=== PATIENT | female | born 1960 | race Caucasian/White ===

== ENCOUNTER 2024-06-06 22:41 | Emergency (ER) | payer OTHER ==
[~2024-06-06] VITALS: Ht 160 cm; Wt 71.5 kg
[2024-06-06 22:58] LABS: HEMOGLOBIN 13.5 g/dL (12.0-18.0)
[2024-06-06] MEDS ORDERED: LACTATED RINGER'S 1,000 ML IV ONE (23:00)
[2024-06-06] MEDS ORDERED: ondansetron HCL 4 MG/2 ML VIAL IV ONE (23:00)
[2024-06-06] MEDS ORDERED: DIPHTH,PERTUSS(ACELL),TET VAC 0.5 ML SYRINGE IM ONE (23:00)
[2024-06-06 23:01] LABS: BASOPHILS 0.7 % (0-2); EOSINOPHILS 11.7 % (0-6); HEMATOCRIT 39.8 % (35.0-50.0); LYMPHOCYTES 32.1 % (24-44); MCHC 33.8 g/dl (30-36); MCV 97.6 fl (81-99); MONOCYTES 10.6 % (0-12); NEUTROPHILS 44.9 % (39-80); PLATELET COUNT 190 K/uL (140-440); RBC 4.08 M/ul (4.3-5.7); RDW 13.1 (10.5-15.0)
[2024-06-06 23:14] LABS: ALBUMIN 3.7 g/dL (3.4-5.0); ALBUMIN/GLOBULIN RATIO 1.12 (1.1-2.4); ANION GAP 12.9 (7-21); BILIRUBIN, TOTAL 0.3 ng/dL (0.2-1.0); BUN/CREATININE RATIO 12.94 (6.0-28.6); CALCIUM 8.9 mg/dL (8.5-10.1); CREATININE, SERUM 0.85 mg/dL (0.55-1.02); POTASSIUM 3.9 mmol/L (3.5-5.1)
[2024-06-06 23:36] LABS: ABO O; ANTIBODY SCREEN NEGATIVE; RH POSITIVE
[2024-06-07] MEDS ORDERED: TRAMADOL HCL50 MG PO (00:30)
[2024-06-07 00:43] LABS: BILIRUBIN, URINE NEGATIVE (negative); BLOOD/HGB, URINE NEGATIVE (Negative); KETONE, URINE NEGATIVE (Negative); LEUK ESTERASE, URINE NEGATIVE (negative); NITRITE, URINE NEGATIVE (negative)
[2024-06-07 01:11] LABS: AMPHETAMINES, URINE NEGATIVE (NEGATIVE); BARBITURATES, URINE NEGATIVE (NEGATIVE); BENZODIAZEPINE, URINE NEGATIVE (NEGATIVE); BUPRENORPHINE, URINE NEGATIVE (NEGATIVE); CANNABINOID, URINE NEGATIVE (NEGATIVE); COCAINE, URINE NEGATIVE (NEGATIVE); ECSTASY, URINE NEGATIVE (NEGATIVE); FENTANYL, URINE NEGATIVE (NEGATIVE); METHADONE, URINE NEGATIVE (NEGATIVE); OPIATES, URINE NEGATIVE (NEGATIVE); OXYCODONE, URINE NEGATIVE (NEGATIVE); PHENCYCLIDINE, URINE NEGATIVE (NEGATIVE)
[2024-06-07 05:00] VITALS: BP 107/68
== END 2024-06-07 05:00 | disposition home or self-care (01) ==
LOC: ED 22:41
PROVIDERS: Family Medicine
DX: S16.1XXA Strain of muscle, fascia and tendon at neck level, initial encounter (principal); S01.01XA Laceration without foreign body of scalp, initial encounter; W18.30XA Fall on same level, unspecified, initial encounter; Z88.2 Allergy status to sulfonamides
CPT/HCPCS: 36415; 70450; 72125; 80053; 80307; 81003; 85025; 86850; 86900; 86901; 90471; 90715; 96361; 96374; 99284-25; G0480; J2405; J7121